=== PATIENT | female | born 1975 | race Hispanic/Latino ===

== ENCOUNTER 2016-10-23 20:56 | Emergency (ER) | payer OTHER ==
[~2016-10-23] VITALS: Ht 154.9 cm; Wt 108.9 kg
[~2016-10-23 20:56] MED LIST: CYCLOBENZAPRINE10 M1 PO; MEDROL4 M2 PO; PERCOCET 5-3251 EACH PO
--- NOTE | 2016-10-23 22:37 | ED EYE COMPLAINT ---
History of Present Illness General Chief Complaint: General Adult Stated Complaint: BACK PAIN/ ?PINK EYE Source: patient, old records Exam Limitations: no limitations Vital Signs & Intake/Output Vital Signs & Intake/Output Vital Signs Date Time Temp Pulse Resp B/P Pulse O2 O2 Flow FiO2 Ox Delivery Rate 10/23 2100 97.1 97 20 130/89 96 Room Air Allergies Coded Allergies: Penicillins (Intermediate, HIVES 09/15/16) prochlorperazine (From COMPAZINE) (Intermediate, LOCK JAW 09/15/16) Reconcile Medications Cyclobenzaprine HCl 10 MG TABLET 1 TAB PO Q8P spasms Cyclobenzaprine HCl 5 MG TABLET 1 TAB PO TIDPRN PRN pain Methylprednisolone. (Medrol) 4 MG TAB.DS.PK 1 DP PO AD back pain 6 on day 1 then reduce by one tablet daily until gone Oxycodone HCl/Acetaminophen (Percocet 5-325 MG Tablet) 5 MG-325 MG TABLET 1-2 TAB PO Q6P PRN pain Oxycodone HCl/Acetaminophen (Percocet 5-325 MG Tablet) 5 MG-325 MG TABLET 1 TAB PO BID pain Polytrim (Polytrim Eye Drops) 10,000 UNIT-1 MG/ML DROPS 1 GTT OPH Q6HR conjunctivitis Triage Note: PRESENTS TO ED FOR EVALUATION OF REDENNED BILATERAL EYES X 3 DAYS NOW. Triage Nurses Notes Reviewed? yes Onset: Abrupt Duration: day(s): (3), constant Timing: recent history Injury Environment: home Severity: moderate Severity Numbers: 5 No Modifying Factors: none Left Eye Associated Symptoms: itching Right Eye Associated Symptoms: itching : No Patient currently breastfeeds: No HPI: 41-year-old female with history of chronic back pain secondary to herniated disks presents to emergency room complaining of a one-week history of bilateral left greater than right lower back pain after she twisted while filling up the dog bowl. There is no fall or trauma. She's been taking [id number] medications without improvement. She is currently visiting here from [place]. She was seen here 1 month ago for similar symptoms at which time she was prescribed pain medicine and muscle relaxer with improvement. She denies any urinary symptoms urinary or bowel incontinence abdominal pain nausea vomiting diarrhea fever or chills. Patient is also complaining of a three-day history of bilateral eye pruritus and redness associated with discharge in the morning. She does not wear glasses or contacts no vision changes she has not attempted taking any [id number] medications for her symptoms (BARB CARROLL) Past History Travel History Traveled to [place] past 21 day No Medical History Any Pertinent Medical History? see below for history Neurological: NONE EENT: NONE Cardiovascular: NONE Respiratory: NONE Gastrointestinal: NONE Hepatic: NONE Renal: NONE Musculoskeletal: SLIPPED DISK Psychiatric: NONE Endocrine: NONE Blood Disorders: NONE Cancer(s): NONE FRUIT LOADER/Reproductive: NONE Surgical History Surgical History: non-contributory Psychosocial History What is your primary language [place] Tobacco Use: Current Daily Use Daily Tobacco Use Amount/Type: => 5 Cigarettes daily Family History Hx Contributory? No (BARB CARROLL) Review of Systems Review of Systems Constitutional: Reports: see HPI. All Other Systems: Reviewed and Negative Comments Review of systems: See HPI, All other systems negative. Constitutional, no chills no fever, no malaise HEENT: No visual changes no sore throat no congestion, no ear pain Cardiovascular: No chest pain , no palpitation , no orthopnea no ankle swelling Skin, no rashes, no change in skin Respiratory: No dyspnea no cough no sputum GI: No nausea no vomiting, no diarrhea, : No dysuria No hematuria, no frequency, no discharge Muscle skeletal: No joint pain, no joint swelling, back pain, no neck pain, Neurologic: No numbness no headache Psych: No stress no anxiety no depression,. Heme/endocrine: No bruising no bleeding Immunology: No lymphadenopathy (BARB CARROLL) Physical Exam General Appearance: well developed/nourished, no apparent distress, alert, awake , comfortable General Inspection: normal inspection General Inspection: normal inspection Physical Exam Comments: Well-developed well-nourished person in no acute distress HEENT: Normal EENT exam; PERRL, EOMI, no nystagmus. HEAD is atraumatic. moist mucous membranes. Conjunctiva injected bilaterally there is no orbital erythema swelling, no evidence of entrapment Neck: Supple, no lymphadenopathy, normal range of motion Back: Bilateral paralumbar muscle tenderness all patient no CVA tenderness. Full range of motion Cardiovascular: Regular rate and rhythms no murmurs rubs Respiratory: Patient speaking in full complete sentences. Breath sounds clear to auscultation bilaterally: NO W/R/R Abdomen: Soft, nontender nondistended, no appreciable organomegaly. Normal bowel sounds. No rebound/guarding, Extremity: No edema, full range of motion of extremities Neuro: Alert oriented x3, motor sensory normal. There were no obvious focal neurologic abnormalities. Skin: No appreciable rash on exposed skin, skin is warm and dry. Psych: Mood and affect is normal, memory and judgment is normal. (BARB CARROLL) Progress Differential Diagnosis: corneal abrasion, corneal foreign body, conjunctivitis, detached retina, glaucoma, MUSCLE STRAIN CAUDA EQUINA HERNIATED DISC Plan of Care: Patient clinically looks well. Patient has no evidence of radiculopathy. No urinary bowel dysfunction. No numbness in the genital area. Strength intact. Gross sensation intact. Patient resting comfortably and in no apparent distress. Pain is worse with range of motion. Pain is reproducible IN back with no bruising or ecchymosis noted. . Patient is to follow-up with primary care doctor. May need MRI of the lower back at some point time. No concerns for cauda equina at this point time. I considered this diagnosis but patient does not have any symptoms consistent with cauda equina. Patient has no secondary causes of back pain. No cardiac, pulmonary, or abdominal complaints. No abdominal pain on exam. Cardiac pulmonary exam within normal limits. No rashes, afebrile, denies recent weight loss, dizziness, lightheadedness she feels comfortable plan cleared for discharge (BARB CARROLL) Departure Departure Time of Disposition: 2250 Disposition: HOME OR SELF CARE Condition: Stable Clinical Impression Primary Impression: Conjunctivitis Secondary Impressions: Low back strain Referrals: PATIENT HAS NO PRIMARY CARE DR (PCP/Family) Additional Instructions: Follow-up with her primary care physician when YOU return home. Percocet and Flexeril as directed. Use caution as this is a narcotic highly addictive and may make you drowsy no driving or drinking alcohol while taking. Polytrim eyedrops as directed cool compresses as needed Benadryl [id number] to help with itching prescriptions were sent to [facility] pharmacy Departure Forms: Customer Survey General Discharge Information Prescriptions: Current Visit Scripts Polytrim (Polytrim Eye Drops) 1 GTT OPH Q6HR #10 ML Oxycodone HCl/Acetaminophen (Percocet 5-325 MG Tablet) 1 TAB PO BID #10 TAB Cyclobenzaprine HCl 1 TAB PO TIDPRN PRN pain #12 TAB (BARB CARROLL) PA/REPAIRER VENEER SHEET Co-Sign Statement Statement: ED Attending supervision documentation- [] I saw and evaluated the patient. I have also reviewed all the pertinent lab results and diagnostic results. I agree with the findings and the plan of care as documented in the PA's/REPAIRER VENEER SHEET's documentation. [X] I have reviewed the ED Record and agree with the PA's/REPAIRER VENEER SHEET's documentation. [] Additions or exceptions (if any) to the PAs/REPAIRER VENEER SHEET's note and plan are summarized below: [] (JAVIER GOMEZ,MONSE)
[2016-10-23] MEDS ORDERED: CYCLOBENZAPRINE5 M2 PO (22:52)
[2016-10-23] MEDS ORDERED: POLYTRIM EYE DR10 ML OPH (22:52)
[2016-10-23] MEDS ORDERED: PERCOCET 5-3251 EACH PO (22:52)
[2016-10-23 22:58] VITALS: BP 134/85
== END 2016-10-23 22:59 ==
LOC: ERH 20:56
DX: S39.012A Strain of muscle, fascia and tendon of lower back, initial encounter (principal); H10.9 Unspecified conjunctivitis; X58.XXXA Exposure to other specified factors, initial encounter